=== PATIENT | female | born 1935 | race Caucasian/White ===

== ENCOUNTER → 2016-10-29 | Outpatient (CLI) | payer MEDICARE, OTHER ==
[~2016-10-29] MED LIST: ASPIRIN 32325 MG/TAB PO; CALCIUM + D 6001 TA1 PO; CALCIUM 500 + D1 TA2 PO; CARDI-OMEGA1000 MG PO; CENTRUM SILVER1 CTB PO; COREG 3.123.125 MG/T PO; COREG 6.256.25 MG/TA PO; KLOR-CON 1010 MEQ PO; LEVAQUIN 5500 MG/TA1 PO; PEPCID 20MG TAB20 MG PO; PRILOSEC 20MG20 MG PO; PRINZIDE 25 MG-1 TAB PO; SYNTHROID0.05 MG/TA PO; TYLENOL PM EXTR1 TA1 PO; ZESTRIL 20MG TA20 MG PO; ZOCOR 40MG40 MG PO
== END ==
LOC: MC.RAD 15:20
DX: Z12.31 Encounter for screening mammogram for malignant neoplasm of breast (principal)

== ENCOUNTER → 2016-11-23 | Outpatient (CLI) | payer MEDICARE, OTHER | LOC: COL.RAD 13:27 | DX: Z13.89 Encounter for screening for other disorder (principal) ==

== ENCOUNTER → 2017-12-06 | Outpatient (CLI) | payer MEDICARE, OTHER | LOC: COL.CARD 09:07 | DX: I49.9 Cardiac arrhythmia, unspecified (principal) ==

== ENCOUNTER → 2018-03-17 | Outpatient (CLI) | payer MEDICARE, OTHER | LOC: MC.RAD 10:55 | DX: Z12.31 Encounter for screening mammogram for malignant neoplasm of breast (principal) ==

== ENCOUNTER → 2019-05-11 | Outpatient (CLI) | payer MEDICARE, OTHER | LOC: MC.RAD 14:41 | DX: Z12.31 Encounter for screening mammogram for malignant neoplasm of breast (principal) ==

== ENCOUNTER → 2020-06-25 | Outpatient (CLI) | payer MEDICARE, OTHER | LOC: MC.RAD 09:30 | DX: Z12.31 Encounter for screening mammogram for malignant neoplasm of breast (principal) ==

== ENCOUNTER → 2021-09-04 | Outpatient (CLI) | payer MEDICARE, OTHER | LOC: MC.RAD 10:46 | DX: Z12.31 Encounter for screening mammogram for malignant neoplasm of breast (principal) ==

== ENCOUNTER → 2022-11-12 | Outpatient (CLI) | payer MEDICARE, OTHER | LOC: MC.RAD 13:35 | DX: Z12.31 Encounter for screening mammogram for malignant neoplasm of breast (principal); N63.10 Unspecified lump in the right breast, unspecified quadrant ==

== ENCOUNTER → 2022-11-13 | Outpatient (CLI) | payer MEDICARE, OTHER | LOC: MC.RAD 12:55 | DX: N63.12 Unspecified lump in the right breast, upper inner quadrant (principal) ==

== ENCOUNTER → 2023-08-05 | Outpatient (CLI) | payer MEDICARE ==
[~2023-08-05] MED LIST changes: +ASPIRIN 81M81 MG/TA2 PO; +COZAAR100 MG PO; +EPA FISH OIL1 SGL PO; +HCTZ 25MG TAB25 MG PO; +NORCO 325 MG-51 TAB PO; +SINGULAIR 110 MG/TAB PO; +VITAMIN D250 MCG PO; +ZOCOR 20MG20 MG PO
== END ==
LOC: COL.RAD 10:08
DX: J98.11 Atelectasis (principal); I87.8 Other specified disorders of veins; Z85.42 Personal history of malignant neoplasm of other parts of uterus

== ENCOUNTER → 2023-11-16 | Outpatient (CLI) | payer MEDICARE, OTHER | LOC: MC.RAD 08:58 | DX: Z12.31 Encounter for screening mammogram for malignant neoplasm of breast (principal); C50.211 Malignant neoplasm of upper-inner quadrant of right female breast ==